=== PATIENT | female | born 1925 | race Caucasian/White ===

== ENCOUNTER → 2016-10-27 | Outpatient (CLI) | payer MEDICARE, OTHER | END | disposition home or self-care (01) | LOC: PCVCCLINIC 13:53 | PROVIDERS: ATTEND Internal Medicine Cardiovascular Disease | DX: E78.00 Pure hypercholesterolemia, unspecified (principal); I05.0 Rheumatic mitral stenosis; I77.9 Disorder of arteries and arterioles, unspecified; I42.1 Obstructive hypertrophic cardiomyopathy; I10 Essential (primary) hypertension; R06.00 Dyspnea, unspecified; R07.89 Other chest pain | CPT/HCPCS: 80061; 93005; G0463 ==